=== PATIENT | female | born 1970 | race Asian ===

== ENCOUNTER 2022-07-31 14:53 | Outpatient (CLI) | payer OTHER | END 2022-07-31 19:56 | disposition home or self-care (01) | LOC: CT 14:53 | PROVIDERS: ATTEND Internal Medicine | DX: R51.9 Headache, unspecified (principal); H53.8 Other visual disturbances ==

== ENCOUNTER → 2022-10-22 | Outpatient (CLI) | payer OTHER | LOC: RAD 15:29 | PROVIDERS: ATTEND Internal Medicine | DX: M79.641 Pain in right hand (principal); M25.531 Pain in right wrist ==